=== PATIENT | female | born 1950 | race African-American/Black ===

== ENCOUNTER 2022-07-06 21:27 | Emergency (ER) | payer SELFPAY ==
[2022-07-06 22:26] LABS: #Eosinphils 0.2 thou/uL (0.0-0.7); #Lymphocytes 1.6 thou/uL (1.20-3.40); #Monocytes 0.4 thou/uL (0.11-0.59); #Neutrophils 2.1 thou/uL (1.40-6.50); %Basophils 0.4 % (0.0-1.0); %Eosinophils 5.4 % (0.0-10.0); %Neutrophils 48.2 % (42.0-75.0); Hemoglobin 13.8 g/dL (12.0-16.0); Mean Corpuscular HGB CONC 33.4 g/dL (32.0-36.0); Mean Corpuscular Volume 89.7 fL (78.0-98.0); Mean Platelet Volume 7.7 fL (7.4-10.4); Platelet Count 172 thou/uL (130-400); RBC Distribution Width 13.2 % (11.5-14.5); Red Blood Cell (RBC) Count 4.61 mill/uL (4.20-5.40); White Blood Cell (WBC) Count 4.3 thou/uL (4.8-10.8)
[2022-07-06 22:36] LABS: INR-International Normal Ratio 0.9; PTT 28.5 sec (22.9-36.1); Prothrombin Time 12.3 sec (12.0-14.7)
[2022-07-06 22:43] LABS: ALT (SGPT) 54 U/L (8-55); AST (SGOT) 63 U/L (5-34); Albumin 4.1 g/dL (3.4-4.8); Alkaline Phosphatase 340 U/L (40-110); Anion Gap 14 mmol/L (10-20); BUN (Urea Nitrogen) 14 mg/dL (9.8-20.1); Bilirubin, Total 0.5 mg/dL (0.2-1.2); Calc. Creatinine Clearance 0 mL/min (70-130); Calcium 9.4 mg/dL (7.8-10.44); Carbon Dioxide 25 mmol/L (23-31); Chloride 105 mmol/L (98-107); Estimated GFR 70; Globulin 3.1 g/dL (2.4-3.5); Glucose 119 mg/dL (83-110); Protein, Total 7.2 g/dL (5.8-8.1); Sodium 140 mmol/L (136-145)
[2022-07-06 22:58] LABS: D-Dimer Test Less than 0.27 *mcg/mL (0.27-0.43)
== END 2022-07-06 23:54 | disposition home or self-care (01) ==
LOC: ERS 21:27
DX: R55 Syncope and collapse (principal); I10 Essential (primary) hypertension; Z79.899 Other long term (current) drug therapy
CPT/HCPCS: 36415; 71045; 80053; 84484; 85025; 85379; 85610; 85730; 93005